=== PATIENT | male | born 1980 | race Caucasian/White ===

== ENCOUNTER 2018-08-11 00:44 | Emergency (ER) | payer SELFPAY ==
[~2018-08-11] VITALS: Ht 160 cm; Wt 65.0 kg
[2018-08-11 00:49] VITALS: BP 127/83; PULSE 110; RESP 24; Ht 160 cm; Wt 65.0 kg
--- NOTE | 2018-08-11 00:58 | ERD ---
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 Denies SI or HI. Denies any other current complaints. Admits to using meth. ROS All systems reviewed and are negative except as per history of present illness. Allergies Allergies: Coded Allergies: No Known Allergy (Unverified , 01/28/15) Physical Exam Vitals Vital Signs Date Temp Pulse Resp B/P (MAP) Pulse Ox O2 O2 Flow FiO2 Time Delivery Rate 08/11/18 98.0 110 24 127/83 100 00:49 (98) Physical Exam Const: No acute distress Head: Atraumatic Eyes: Normal Conjunctiva ENT: Normal External Ears, Nose and Mouth. Neck: Full range of motion. No meningismus. Resp: Clear to auscultation bilaterally Cardio: Regular rate and rhythm, no murmurs Abd: Soft, non tender, non distended. Normal bowel sounds Skin: No petechiae or rashes Back: No midline or flank tenderness Ext: No cyanosis, or edema Neur: Awake and alert Psych: Normal Mood and Affect Procedures/MDM Medical decision making: This is a 38-year-old male who comes in for drug abuse. Is been advised to stop using drugs Departure Diagnosis: Primary Impression: Drug use Condition: Stable Patient Instructions: Drug Abuse ILDEFONSO SALEH Aug 11, 2018 00:58
== END 2018-08-11 03:19 | disposition home or self-care (01) ==
LOC: E/R 00:44
DX: F15.90 Other stimulant use, unspecified, uncomplicated (principal)
CPT/HCPCS: 99283

== ENCOUNTER 2018-08-11 05:45 | Emergency (ER) | payer SELFPAY ==
[~2018-08-11] VITALS: Ht 165.1 cm; Wt 62.0 kg
[2018-08-11 05:53] VITALS: BP 139/55; PULSE 115; RESP 19; Ht 165.1 cm; Wt 62.0 kg
== END 2018-08-11 07:01 | disposition left against medical advice (07) ==
LOC: E/R 05:45
DX: Z53.21 Procedure and treatment not carried out due to patient leaving prior to being seen by health care provider (principal)